=== PATIENT | male | born 1980 | race African-American/Black ===

== ENCOUNTER 2017-01-27 15:07 | Emergency (ER) | payer BC ==
[2017-01-27 15:37] VITALS: BP 134/80
[2017-01-27] MEDS ORDERED: diphenhydrAMINE 50 MG/ML SDV IM ONE (16:31)
[2017-01-27] MEDS ORDERED: Metoclopramide 10 MG/2 ML SDV IM ONE (16:31)
[2017-01-27] MEDS ORDERED: Ketorolac 60 MG/2 ML SDV IM ONE (16:31)
--- NOTE | 2017-01-27 16:32 | EDM.PDOC ---
ED HPI GENERAL MEDICAL PROBLEM - General Chief Complaint: Headache Stated Complaint: Headache Time Seen by Provider: 01/27/17 16:10 Source of Information: Reports: Patient, Old Records, RN Notes Reviewed History Limitations: Reports: No Limitations - History of Present Illness INITIAL COMMENTS - FREE TEXT/NARRATIVE: 36 year old male presents to the ED today with 2 week history of intermittent frontal headache, worse on the left. He has associated light sensitivity, sinus pressure, and post-nasal drip. He has a history of headaches that seem to be seasonal. He had a normal CT in June of 2016. He also has seasonal allergy symptoms. He is not taking anything for his allergies. He has tried taking Excedrin for the headache with minimal relief. He denies weakness in extremities , difficulty walking, slurred speech, neck pain, neck stiffness, nausea, vomiting, cough, shortness of breath, chest pain. Anterior Headache Pain Score (Numeric/FACES): 4 - Related Data Allergies Allergy/AdvReac Type Severity Reaction Status Date / Time No Known Allergies Allergy Verified 01/27/17 15:33 Home Meds: Home Meds Methylphenidate HCl [Methylphenidate ER] 18 mg PO DAILY 07/18/16 [History] Ondansetron HCl [Zofran] 4 mg PO ASDIRECTED 07/18/16 [History] predniSONE [Prednisone] 10 mg PO DAILY #68 tablet 07/21/16 [Rx] Past Medical History - Past Health History Medical/Surgical History: Denies Medical/Surgical History HEENT History: Reports: Impaired Vision Cardiovascular History: Reports: Hypertension Respiratory History: Reports: Sleep Apnea Other Respiratory History: c-pap Neurological History: Reports: Migraines Psychiatric History: Reports: ADD, Anxiety, Autism, Depression - Past Surgical History HEENT Surgical History: Reports: None Cardiovascular Surgical History: Reports: None Social & Family History - Family History Family Medical History: Noncontributory - Tobacco Use Smoking Status *Q: Never Smoker Second Hand Smoke Exposure: No - Caffeine Use Caffeine Use: Reports: Coffee, Soda, Tea - Recreational Drug Use Recreational Drug Use: No ED ROS GENERAL - Review of Systems Review Of Systems: See Below Constitutional: Reports: No Symptoms. Denies: Fever, Chills, Diaphoresis HEENT: Reports: Rhinitis, Sinus Problem (congestion and snius pressure), Other ( post-nasal drip). Denies: Ear Pain, Throat Pain, Vertigo, Vision Change Respiratory: Reports: No Symptoms. Denies: Cough Cardiovascular: Reports: No Symptoms. Denies: Chest Pain GI/Abdominal: Reports: No Symptoms. Denies: Abdominal Pain, Nausea, Vomiting Neurological: Reports: Headache. Denies: Confusion, Dizziness, Numbness, Tingling, Weakness - Physical Exam Exam: See Below Exam Limited By: No Limitations General Appearance: Alert, WD/WN, No Apparent Distress Eye Exam: Bilateral Eye: EOMI, Normal Inspection, PERRL Ears: Normal External Exam, Normal Canal, Hearing Grossly Normal, Normal TMs Nose: Normal Inspection, Normal Mucosa Throat/Mouth: Normal Inspection, Normal Oropharynx, No Airway Compromise Head Exam: Atraumatic, Normocephalic Neck: Normal Inspection, Supple, Non-Tender, Full Range of Motion Respiratory/Chest: No Respiratory Distress, Lungs Clear, Normal Breath Sounds Cardiovascular: Regular Rate, Rhythm Neuro Exam (Abbreviated): Alert, Oriented, Normal Cognition, No Motor/Sensory Deficits, Other (cerebellar testing intact ) Skin Exam: Warm, Dry, Intact Course - Vital Signs Last Recorded V/S: Last Vital Signs Temp 96.8 F 01/27/17 15:33 Pulse 78 01/27/17 18:24 Resp 16 01/27/17 18:24 BP 134/80 01/27/17 15:33 Pulse Ox 100 01/27/17 18:24 - Orders/Labs/Meds Meds: Medications Discontinued Medications Generic Name Dose Route Start Last Admin Trade Name Joseq PRN Reason Stop Dose Admin Diphenhydramine HCl 50 mg 01/27/17 16:31 01/27/17 16:43 Benadryl IM 01/27/17 16:32 50 mg ONETIME ONE Administration Ketorolac Tromethamine 60 mg 01/27/17 16:31 01/27/17 16:44 Toradol IM 01/27/17 16:32 60 mg ONETIME ONE Administration Metoclopramide HCl 10 mg 01/27/17 16:31 01/27/17 16:41 Reglan IM 01/27/17 16:32 10 mg ONETIME ONE Administration - Re-Assessments/Exams Free Text/Narrative Re-Assessment/Exam: Symptoms treated with Toradol, Benadryl and Reglan. We discussed dexamethasone since that's worked for him in the past and there is suggestion of cluster headaches in his history. He would like to start with the Toradol, Benadryl and Reglan first. We discussed his allergy symptoms. He goes months without headaches and his headaches seem to be associated with his allergy season. I see he was here in January of last year with the same complaints, indicating cyclic type etiology. He had complete resolution of symptoms with initial treatment. No dexamethasone was needed. He requested discharge. He was educated on allergy symptom treatment including nedi-pot and encouraged to start flonase nasal spray. Discharge instructions as documented. Departure - Departure Time of Disposition: 17:37 Disposition: Home, Self-Care 01 Condition: good Clinical Impression: Sinus headache Allergic rhinitis Qualifiers: Qualified Code(s): J30.9 - Allergic rhinitis, unspecified - Discharge Information Instructions: Sinus Headache, Allergic Rhinitis Referrals: Gideon Kennedy PA-C [Primary Care Provider] - Forms: ED Department Discharge Additional Instructions: Continue nedi-pot Start Flonase 1 spray to each nostril twice a day. Take this consistently for 2- 3 weeks in order to see if it helps Continue Excedrin and/or Ibuprofen as needed for headache You can also take Benadryl at home Return to ER as needed
== END 2017-01-27 17:50 | disposition home or self-care (01) ==
LOC: JD.ED 15:07
DX: R51 Headache (principal); I10 Essential (primary) hypertension; Z79.899 Other long term (current) drug therapy
CPT/HCPCS: 96372; 99284; J1200; J1885; J2765; 99283

== ENCOUNTER 2019-01-12 11:45 | Emergency (ER) | payer BC ==
[2019-01-12 12:03] VITALS: BP 132/95
[2019-01-12] MEDS ORDERED: Sodium Chloride 0.9% 10 ML Syringe FLUSH PRN (12:05)
[2019-01-12] MEDS ORDERED: Ondansetron 4 MG/2 ML SDV IVPUSH ONE (12:06)
[2019-01-12] MEDS ORDERED: HYDROmorphone 0.5 MG/0.5 ML Syringe IVPUSH ONE (12:06)
--- NOTE | 2019-01-12 13:45 | EDM.PDOC ---
ED HPI GENERAL MEDICAL PROBLEM - General Chief Complaint: Cardiovascular Problem Stated Complaint: HIGH BLOOD PRESSURE/ NAUSEA SENT BY [facility] Time Seen by Provider: 01/12/19 11:54 Source of Information: Reports: Patient History Limitations: Reports: No Limitations - History of Present Illness INITIAL COMMENTS - FREE TEXT/NARRATIVE: The patient presents with chest pain and abdominal pain. He also has some nausea but no vomiting. This has been going on for a few days. He was sent over because of his blood pressure but his blood pressure looks good now. He says the abdominal pain and nausea has been an ongoing problem for about 3 years. He went to a GI specialist to be worked up for Chron's and ulcerative colitis but nothing was found. The pain in the chest feels like heartburn. He also has trouble with diarrhea and constipation at times. He has no history of hypertension or heart disease. Onset: Gradual Duration: Day(s): Location: Reports: Chest, Abdomen Quality: Reports: Burning Severity: Mild Improves with: Reports: None Worsens with: Reports: None Associated Symptoms: Reports: Chest Pain. Denies: Cough, Fever/Chills, Headaches, Nausea/Vomiting, Shortness of Breath Chest Pain Score (Numeric/FACES): 8 - Related Data Allergies Allergy/AdvReac Type Severity Reaction Status Date / Time No Known Allergies Allergy Verified 01/12/19 11:56 Home Meds: Home Meds Methylphenidate HCl [Methylphenidate ER] 18 mg PO DAILY 07/18/16 [History] Ondansetron [Zofran ODT] 4 mg PO Q6H PRN #20 tab.dis 01/12/19 [Rx] Past Medical History - Past Health History Medical/Surgical History: Denies Medical/Surgical History HEENT History: Reports: Impaired Vision Cardiovascular History: Reports: Hypertension Respiratory History: Reports: Sleep Apnea Other Respiratory History: c-pap Gastrointestinal History: Reports: Chronic Constipation, Chronic Diarrhea, GERD Neurological History: Reports: Migraines Psychiatric History: Reports: ADD, Anxiety, Autism, Depression - Past Surgical History HEENT Surgical History: Reports: None Cardiovascular Surgical History: Reports: None Social & Family History - Family History Family Medical History: Noncontributory - Tobacco Use Smoking Status *Q: Light Tobacco Smoker Years of Tobacco use: 10 Packs/Tins Daily: 0.3 Tobacco Use Comment: Smokes when he drinks - Caffeine Use Caffeine Use: Reports: Coffee Other Caffeine Use: Energy pills - Recreational Drug Use Recreational Drug Use: No ED ROS GENERAL - Review of Systems Review Of Systems: See Below Constitutional: Reports: No Symptoms HEENT: Reports: No Symptoms Respiratory: Reports: No Symptoms Cardiovascular: Reports: Chest Pain Endocrine: Reports: No Symptoms GI/Abdominal: Reports: Abdominal Pain : Reports: No Symptoms Musculoskeletal: Reports: No Symptoms ED EXAM, GENERAL - Physical Exam Exam: See Below Exam Limited By: No Limitations General Appearance: Alert, No Apparent Distress Ears: Normal External Exam Nose: Normal Inspection Head: Atraumatic, Normocephalic Neck: Normal Inspection Respiratory/Chest: No Respiratory Distress, Lungs Clear, Normal Breath Sounds Cardiovascular: Regular Rate, Rhythm, No Edema, No Murmur GI/Abdominal: Soft, Non-Tender, No Organomegaly, No Mass Back Exam: Normal Inspection Extremities: Normal Inspection EKG INTERPRETATION EKG Date: 01/12/19 Time: 12:15 Rhythm: NSR Rate (Beats/Min): 67 [place]: Normal P-Wave: Present QRS: Normal ST-T: Elevated (Normal early repol) QT: Normal Course - Vital Signs Last Recorded V/S: Last Vital Signs Temp 97.0 F 01/12/19 11:58 Pulse 79 01/12/19 11:58 Resp 18 01/12/19 11:58 BP 132/95 H 01/12/19 11:58 Pulse Ox 100 01/12/19 11:58 - Orders/Labs/Meds Orders: Active Orders 24 hr Category Date Time Status Cardiac Monitoring [RC] . DIRECTED Care 01/12/19 12:05 Active EKG Documentation Completion [RC] STAT Care 01/12/19 12:06 Active Peripheral IV Care [RC] . DIRECTED Care 01/12/19 12:06 Active Chest 2V [CR] Stat Exams 01/12/19 12:06 Taken Sodium Chloride 0.9% [Saline Flush] Med 01/12/19 12:05 Active 10 ml FLUSH ASDIRECTED PRN Peripheral IV Insertion Adult [OM.PC] Stat Oth 01/12/19 12:05 Ordered Medication Orders Sodium Chloride (Saline Flush) 10 ml FLUSH ASDIRECTED PRN PRN Reason: Keep Vein Open Labs: Laboratory Tests 01/12/19 01/12/19 Range/Units 12:25 12:25 WBC 4.51 (4.23-9.07) K/mm3 RBC 5.24 (4.63-6.08) M/mm3 Hgb 15.6 (13.7-17.5) gm/L Hct 47.3 (40.1-51.0) % MCV 90.3 (79.0-92.2) fl MCH 29.8 (25.7-32.2) pg MCHC 33.0 (32.2-35.5) g/dl RDW Std Deviation 41.7 (35.1-43.9) fL Plt Count 226 (163-337) K/mm3 MPV 9.4 (9.4-12.3) fl Neut % (Auto) 55.7 (34.0-67.9) % Lymph % (Auto) 31.7 (21.8-53.1) % [place] % (Auto) 9.8 (5.3-12.2) % Eos % (Auto) 2.2 (0.8-7.0) Baso % (Auto) 0.4 (0.1-1.2) % Neut # (Auto) 2.51 (1.78-5.38) K/mm3 Lymph # (Auto) 1.43 (1.32-3.57) K/mm3 [place] # (Auto) 0.44 (0.30-0.82) K/mm3 Eos # (Auto) 0.10 (0.04-0.54) K/mm3 Baso # (Auto) 0.02 (0.01-0.08) K/mm3 Sodium 138 (136-145) mEq/L Potassium 4.1 (3.5-5.1) mEq/L Chloride 105 (98-107) mEq/L Carbon Dioxide 25 (21-32) mEq/L Anion Gap 12.1 (5-15) BUN 16 (7-18) mg/dL Creatinine 1.2 (0.7-1.3) mg/dL Est Cr Clr Drug Dosing 93.41 mL/min Estimated GFR (MDRD) > 60 (>60) mL/min BUN/Creatinine Ratio 13.3 L (14-18) Glucose 95 (74-106) mg/dL Calcium 9.0 (8.5-10.1) mg/dL Total Bilirubin 0.3 (0.2-1.0) mg/dL AST 32 (15-37) U/L ALT 72 H (16-63) U/L Alkaline Phosphatase 83 (46-116) U/L Troponin I < 0.017 (0.00-0.056) ng/mL Total Protein 7.1 (6.4-8.2) g/dl Albumin 3.5 (3.4-5.0) g/dl Globulin 3.6 gm/dL Albumin/Globulin Ratio 1.0 (1-2) Meds: Medications Generic Name Dose Route Start Last Admin Trade Name Freq PRN Reason Stop Dose Admin Sodium Chloride 10 ml 01/12/19 12:05 Saline Flush FLUSH ASDIRECTED PRN Keep Vein Open Discontinued Medications Generic Name Dose Route Start Last Admin Trade Name Freq PRN Reason Stop Dose Admin Hydromorphone HCl 0.5 mg 01/12/19 12:06 Dilaudid IVPUSH 01/12/19 12:07 ONETIME ONE Ondansetron HCl 4 mg 01/12/19 12:06 Zofran IVPUSH 01/12/19 12:07 ONETIME ONE - Re-Assessments/Exams Free Text/Narrative Re-Assessment/Exam: 01/12/19 13:48 I ordered an IV saline lock, zofran 4mg IV, dilaudid 0.5mg IV, EKG, CXR and labs. His EKG shows a NSR with no acute changes. His CXR looks good. 01/12/19 13:49 His CBC and CMP look good. His troponin is negative. He feels better. I will discharge him home with some zofran. Departure - Departure Time of Disposition: 13:55 Disposition: Home, Self-Care 01 Condition: Good Clinical Impression: Nausea, Reflux esophagitis Prescriptions: Ondansetron [Zofran ODT] 4 mg PO Q6H PRN #20 tab.dis PRN Reason: Nausea\vomiting Referrals: Fan Sidhu MD [Primary Care Provider] - 1 Week Additional Instructions: Take the zofran 1 pill every 6 hours as needed for nausea and vomiting. Take pepcid daily for 5 days. Please return if you are worse. - My Orders Last 24 Hours: My Active Orders 01/12/19 12:05 Cardiac Monitoring [RC] . DIRECTED Sodium Chloride 0.9% [Saline Flush] 10 ml FLUSH ASDIRECTED PRN Peripheral IV Insertion Adult [OM.PC] Stat 01/12/19 12:06 EKG Documentation Completion [RC] STAT Peripheral IV Care [RC] . DIRECTED Chest 2V [CR] Stat - Assessment/Plan Last 24 Hours: My Active Orders 01/12/19 12:05 Cardiac Monitoring [RC] . DIRECTED Sodium Chloride 0.9% [Saline Flush] 10 ml FLUSH ASDIRECTED PRN Peripheral IV Insertion Adult [OM.PC] Stat 01/12/19 12:06 EKG Documentation Completion [RC] STAT Peripheral IV Care [RC] . DIRECTED Chest 2V [CR] Stat
--- NOTE | 2019-01-12 14:46 | CR ---
Chest: Two views of chest are obtained. Comparison: No prior chest imaging. Heart size and mediastinum are normal. Lungs are clear. Bony structures show minimal scoliosis within the spine. Impression: 1. Nothing acute is seen on two-view chest x-ray. Diagnostic code #2
== END 2019-01-12 14:05 | disposition home or self-care (01) ==
LOC: JD.ED 11:45
DX: K21.0 Gastro-esophageal reflux disease with esophagitis (principal); F17.210 Nicotine dependence, cigarettes, uncomplicated; I10 Essential (primary) hypertension; F41.9 Anxiety disorder, unspecified; F32.9 Major depressive disorder, single episode, unspecified; Z79.899 Other long term (current) drug therapy
CPT/HCPCS: 36415; 71046; 71046-26; 80053; 84484; 85025; 93005; 93010; 99284; 99284-25

== ENCOUNTER 2019-06-13 13:37 | Emergency (ER) | payer BC ==
[2019-06-13] MEDS ORDERED: FLU Vacc QS2019-20(6MOS+)/PF 60 MCG/0.5 ML SYRINGE IM ONE (14:00)
[2019-06-13 14:10] VITALS: BP 136/88; PULSE 72
[2019-06-13] MEDS ORDERED: Sodium Chloride 0.9% 1,000 ML IV ONE (14:56)
[2019-06-13] MEDS ORDERED: Ketorolac 30 MG/ML SDV IVPUSH STA (14:56)
[2019-06-13] MEDS ORDERED: Metoclopramide 10 MG/2 ML SDV IVPUSH STA (14:56)
--- NOTE | 2019-06-13 14:58 | EDM.PDOC ---
ED HPI GENERAL MEDICAL PROBLEM - General Chief Complaint: Headache Stated Complaint: HEADACHE Time Seen by Provider: 06/13/19 13:59 Source of Information: Reports: Patient History Limitations: Reports: No Limitations - History of Present Illness INITIAL COMMENTS - FREE TEXT/NARRATIVE: Mr. Constantino is a pleasant 38-year-old man with a past history significant for treated hypertension and obstructive sleep apnea, and untreated allergic rhinitis, ADD, anxiety, and depression, who suffers recurrent headaches. A cursory review of prior medical records indicates that he has been seen in this ED on 5 prior occasions, and is usually successfully treated with Toradol and Reglan, with or without Benadryl. The patient states that his current headache has been present for the past 1-2 weeks. He states that it initially started on the left side, but is currently felt on the right side. It is dull in character. It waxes and wanes. It is made better with sleep. It may be worse with certain foods; he states that he was previously on a keto diet, and when he went off of it, the headache started. He is planning on resuming the keto diet. He reports associated nausea, but no emesis. He states that he has slight photophobia, but no phonophobia. No visual changes, such as blurry vision, wavy lines, or flashing lights. No neurologic symptoms, such as tingling, numbness, or weakness. He states that his current headache is the same as the headaches that he gets frequently ever since he was a teenager. He states that he has not previously been evaluated by a neurologist or headache specialist, and he has not previously been prescribed anti-migraine medications. The patient states that he has been taking Excedrin Migraine, about 2 tablets per day, which sometimes helps, sometimes does not. Further review of prior medical records indicates that the patient underwent a CT of his head without contrast on 11/04/2015, which returned unremarkable, followed by a CT of his head with contrast on 07/18/2016, which was also negative. The patient's PCP is Dr. Fan Sidhu. The patient has not received an influenza vaccine this season. Left Headache Pain Score (Numeric/FACES): 4 - Related Data Allergies Allergy/AdvReac Type Severity Reaction Status Date / Time No Known Allergies Allergy Verified 06/13/19 13:51 Home Meds: Home Meds Polyethylene Glycol 3350 [Miralax] 17 gm PO DAILY PRN 06/13/19 [History] Past Medical History HEENT History: Reports: Allergic Rhinitis (untreated), Impaired Vision Cardiovascular History: Reports: Hypertension Respiratory History: Reports: Sleep Apnea (nightly CPAP 10) Psychiatric History: Reports: ADD (untreated), Anxiety (untreated), Autism, Depression (untreated) Endocrine/Metabolic History: Reports: Obesity/BMI 30+ Social & Family History - Family History Family Medical History: Noncontributory - Tobacco Use Smoking Status *Q: Current Some Day Smoker - Caffeine Use Caffeine Use: Reports: Coffee Other Caffeine Use: Energy pills - Alcohol Use Alcohol Use History: Yes Alcohol Use Frequency: Socially - Recreational Drug Use Recreational Drug Use: Yes Drug Use in Last 12 Months: No Recreational Drug Type: Reports: Marijuana/Hashish (last smoked 2012) - Living Situation & Occupation Living situation: Reports: Single, Alone Occupation: Employed ([employer]) ED ROS GENERAL - Review of Systems Review Of Systems: ROS reveals no pertinent complaints other than HPI. Neurological: Reports: Headache (frequent/recurrent) - Physical Exam Exam: See Below Exam Limited By: No Limitations General Appearance: Alert, WD/WN, No Apparent Distress Eye Exam: Bilateral Eye: EOMI, Normal Inspection, PERRL Ears: Normal External Exam, Normal Canal, Hearing Grossly Normal, Normal TMs Nose: Normal Inspection, Normal Mucosa, No Blood Throat/Mouth: Normal Inspection, Normal Lips, Normal Teeth, Normal Gums, Normal Oropharynx, Normal Voice, No Airway Compromise Head Exam: Atraumatic, Normocephalic Neck: Normal Inspection, Supple, Non-Tender, Full Range of Motion. No: Lymphadenopathy (L), Lymphadenopathy (R) Respiratory/Chest: No Respiratory Distress, Lungs Clear, Normal Breath Sounds, No Accessory Muscle Use Cardiovascular: Normal Peripheral Pulses, Regular Rate, Rhythm, No Gallop, No JVD, No Murmur, No Rub GI/Abdominal: Normal Bowel Sounds, Soft, Non-Tender, No Organomegaly, No Distention, No Abnormal Bruit, No Mass (Male) Exam: Deferred Rectal (Males) Exam: Deferred Neuro Exam (Abbreviated): Alert, Oriented, CN II-XII Intact, Normal Cognition, No Motor/Sensory Deficits Back Exam: Normal Inspection, Full Range of Motion, NT Extremities: Normal Inspection, Normal Range of Motion, No Pedal Edema, Normal Capillary Refill Psychiatric: Normal Affect Skin Exam: Warm, Dry, Intact, Normal Color, No Rash Course - Vital Signs Last Recorded V/S: Last Vital Signs Temp 36.1 C 06/13/19 13:48 Pulse 72 06/13/19 13:48 Resp 19 06/13/19 13:48 BP 136/88 06/13/19 13:48 Pulse Ox 99 06/13/19 13:48 - Orders/Labs/Meds Meds: Medications Discontinued Medications Generic Name Dose Route Start Last Admin Trade Name Landy PRN Reason Stop Dose Admin Sodium Chloride 1,000 mls @ 999 mls/hr 06/13/19 14:56 06/13/19 15:06 Normal Saline IV 06/13/19 15:56 999 mls/hr ONETIME ONE Administration Influenza Virus Vaccine 1 each 06/13/19 13:55 Pharmacy To Dose - Influenza Vaccine IM 06/13/19 13:56 ONETIME ONE Influenza Virus Vaccine 60 mcg 06/13/19 14:00 06/13/19 14:08 Fluzone Quad [id number] Syringe IM 06/13/19 14:01 60 mcg .ONCE ONE Administration Ketorolac Tromethamine 30 mg 06/13/19 14:56 06/13/19 15:07 Toradol IVPUSH 06/13/19 14:57 30 mg ONETIME STA Administration Metoclopramide HCl 10 mg 06/13/19 14:56 06/13/19 15:11 Reglan IVPUSH 06/13/19 14:57 10 mg ONETIME STA Administration - Re-Assessments/Exams Free Text/Narrative Re-Assessment/Exam: 06/13/19 14:57 The underlying etiology of the patient's headaches is not entirely clear. They do not appear to be migrainous. Since the patient has been successfully treated with Toradol and Reglan, with or without Benadryl in the past, I have Toradol and Reglan. The patient will also be given IV fluid. Since it has been more than one year since the last CT of his head, the patient will receive a CT of his head without contrast today. Lastly, the patient will be given an influenza vaccine during his ED visit. 06/13/19 16:06 CT of the head without contrast is read by Dr. Martinez as: 1. Nothing acute is identified on noncontrast head CT exam. No change is appreciated from previous head CT study. 06/13/19 16:09 The patient states that he feels substantially better following the Toradol and Reglan. Again, the underlying cause of his headache is not clear, but I suspect that it may be a tension-type headache. I suggested that he try to see a Neurologist/headache specialist in [place] to see if a definitive diagnosis can be made. Departure - Departure Time of Disposition: 16:10 Disposition: Home, Self-Care 01 Condition: Good Clinical Impression: Headache Qualifiers: Headache type: unspecified Headache chronicity pattern: episodic headache Intractability: not intractable Qualified Code(s): R51 - Headache - Discharge Information *PRESCRIPTION DRUG MONITORING PROGRAM REVIEWED*: Not Applicable *COPY OF PRESCRIPTION DRUG MONITORING REPORT IN PATIENT CECE: Not Applicable Instructions: Migraine Headache, [id number] Referrals: Fan Sidhu MD [Primary Care Provider] - Forms: ED Department Discharge Additional Instructions: You were seen in the emergency room for a chronic/recurrent headache. Workup in the ER included a CT scan of your head, which returned unremarkable. Your headache substantially improved following IV Toradol and IV Reglan. We recommend that you stay adequately hydrated, and try to avoid pain medications such as Excedrin migraine. As discussed, the underlying cause of your headache is not clear. It is likely a tension-type headache. We recommend, however, that you follow-up with a Neurologist or headache specialist in [place] to get a definitive diagnosis as to the underlying cause of your headache. If any other problems, please do not hesitate to return to the ER.
--- NOTE | 2019-06-13 16:01 | CT ---
Head CT Technique: Multiple axial sections through the brain were obtained. Intravenous contrast was not utilized. Comparison: Prior head CT study of 07/18/16. Findings: Ventricles along with basal cisterns and sulci over the convexities appear within normal limits for the patient's age. No abnormal parenchymal densities are seen. No evidence of intracranial hemorrhage. No midline shift or mass effect is seen. Bone window settings were reviewed which shows the visualized mastoid sinuses and paranasal sinuses to appear clear. No acute calvarial abnormality is seen. Impression: 1. Nothing acute is identified on noncontrast head CT exam. No change is appreciated from previous head CT study. Diagnostic code #1
== END 2019-06-13 16:35 | disposition home or self-care (01) ==
LOC: JD.ED 13:37
DX: R51 Headache (principal); I10 Essential (primary) hypertension; E66.9 Obesity, unspecified; F17.200 Nicotine dependence, unspecified, uncomplicated; Z68.41 Body mass index [BMI] 40.0-44.9, adult
CPT/HCPCS: 70450; 90471; 90686; 96361; 96374; 96375; 99284; J1885; J2765; J7040; G0008

== ENCOUNTER 2020-04-05 12:44 | Emergency (ER) | payer BC, OTHER ==
[2020-04-05] MEDS ORDERED: Metoclopramide 10 MG/2 ML SDV IVPUSH ONE (13:05)
[2020-04-05] MEDS ORDERED: Sodium Chloride 0.9% 10 ML Syringe FLUSH PRN (13:05)
[2020-04-05] MEDS ORDERED: diphenhydrAMINE 50 MG/ML SDV IVPUSH ONE (13:05)
[2020-04-05] MEDS ORDERED: Ketorolac 30 MG/ML SDV IVPUSH ONE (13:05)
[2020-04-05] MEDS ORDERED: Sodium Chloride 0.9% 1,000 ML IV ONE (13:05)
--- NOTE | 2020-04-05 13:14 | EDM.PDOC ---
ED HPI GENERAL MEDICAL PROBLEM - General Chief Complaint: Headache Stated Complaint: MIGRAINE Time Seen by Provider: 04/05/20 12:54 Source of Information: Reports: Patient, RN Notes Reviewed History Limitations: Reports: No Limitations - History of Present Illness INITIAL COMMENTS - FREE TEXT/NARRATIVE: Patient is a 39-year-old male who presents to the ED for the evaluation of his migraine. Patient notes that he has a history of migraines. He has had this particular migraine for the last week and a half. He did go to the walk-in clinic, was given a shot of Toradol, and some nausea medications, that dissolve in your mouth. He thinks it was called Zofran. He was also given some headache medications, but cannot recall the name of this medication at this time. He states he did take the nausea medication 1 hour prior to arrival to the ER today. He notes that his headache is mostly on the left side of his head, is a dull aching in nature, he notes that the headache is worse when he wakes up in the morning and rates it at 8 or 9 out of 10, but at the current moment, he would rated at about a 6 or 7 out of 10. He states that he occasionally gets migraines every 2 to 3 years, he has been worked up by neurology in the past, and states his brain scan was "inconclusive". He is complaining of some light sensitivity mainly, but also has a little bit of sound sensitivity. Patient's primary care provider is Dr. Sidhu. He notes that he has no spots or aura that he has been experiencing. He also states he was tested for COVID on Saturday, and the results are negative. Other than the nausea, he denies any vomiting or diarrhea, no fevers or chills, cough or shortness of breath. Headache Pain Score (Numeric/FACES): 6 - Related Data Allergies Allergy/AdvReac Type Severity Reaction Status Date / Time No Known Allergies Allergy Verified 04/05/20 12:55 Home Meds: Home Meds . [Unable to Verify Home Med List] 04/05/20 [History] Past Medical History HEENT History: Reports: Allergic Rhinitis, Impaired Vision Cardiovascular History: Reports: Hypertension Respiratory History: Reports: Sleep Apnea Other Respiratory History: cpap Gastrointestinal History: Reports: Chronic Constipation, Chronic Diarrhea, GERD Neurological History: Reports: Migraines Psychiatric History: Reports: ADD, Anxiety, Autism, Depression Endocrine/Metabolic History: Reports: Obesity/BMI 30+ - Past Surgical History Musculoskeletal Surgical History: Reports: Shoulder Surgery Social & Family History - Family History Family Medical History: Noncontributory - Tobacco Use Smoking Status *Q: Never Smoker - Caffeine Use Caffeine Use: Reports: None Other Caffeine Use: Energy pills - Recreational Drug Use Recreational Drug Use: No - Living Situation & Occupation Living situation: Reports: Single, Alone Occupation: Employed ([employer]) ED ROS GENERAL - Review of Systems Review Of Systems: Comprehensive ROS is negative, except as noted in HPI. - Physical Exam Exam: See Below Exam Limited By: No Limitations General Appearance: Alert, WD/WN, No Apparent Distress Eye Exam: Bilateral Eye: EOMI, Normal Inspection, PERRL Ears: Normal External Exam Nose: Normal Inspection Throat/Mouth: Normal Inspection, Normal Lips, Normal Teeth, Normal Gums, Normal Oropharynx, Normal Voice, No Airway Compromise Head Exam: Atraumatic, Normocephalic Neck: Normal Inspection Respiratory/Chest: No Respiratory Distress, Lungs Clear, Normal Breath Sounds, No Accessory Muscle Use, Chest Non-Tender Cardiovascular: Normal Peripheral Pulses, Regular Rate, Rhythm, No Murmur Neuro Exam (Abbreviated): Alert, Oriented, Normal Cognition, No Motor/Sensory Deficits Extremities: Normal Inspection, Normal Capillary Refill Psychiatric: Normal Affect, Normal Mood Skin Exam: Warm, Dry, Intact, Normal Color, No Rash Course - Vital Signs Last Recorded V/S: Last Vital Signs Temp 96.7 F L 04/05/20 12:52 Pulse 102 H 04/05/20 12:52 Resp 18 04/05/20 12:52 BP 139/105 H 04/05/20 12:52 Pulse Ox 97 04/05/20 12:52 - Orders/Labs/Meds Orders: Active Orders 24 hr Category Date Time Status Peripheral IV Care [RC] . DIRECTED Care 04/05/20 13:05 Ordered Sodium Chloride 0.9% [Saline Flush] Med 04/05/20 13:05 Active 10 ml FLUSH ASDIRECTED PRN Peripheral IV Insertion Adult [OM.PC] Routine Oth 04/05/20 13:05 Ordered Medication Orders Sodium Chloride (Saline Flush) 10 ml FLUSH ASDIRECTED PRN PRN Reason: Keep Vein Open Last Admin: 04/05/20 13:17 Dose: 10 ml Documented by: SANTHOSH Meds: Medications Generic Name Dose Route Start Last Admin Trade Name Freq PRN Reason Stop Dose Admin Sodium Chloride 10 ml 04/05/20 13:05 04/05/20 13:17 Saline Flush FLUSH 10 ml ASDIRECTED PRN Administration Keep Vein Open Discontinued Medications Generic Name Dose Route Start Last Admin Trade Name Freq PRN Reason Stop Dose Admin Diphenhydramine HCl 25 mg 04/05/20 13:05 04/05/20 13:20 Benadryl IVPUSH 04/05/20 13:06 25 mg ONETIME ONE Administration Sodium Chloride 1,000 mls @ 999 mls/hr 04/05/20 13:05 04/05/20 13:17 Normal Saline IV 04/05/20 14:05 999 mls/hr ASDIRECTED ONE Administration Ketorolac Tromethamine 30 mg 04/05/20 13:05 04/05/20 13:18 Toradol IVPUSH 04/05/20 13:06 30 mg ONETIME ONE Administration Metoclopramide HCl 10 mg 04/05/20 13:05 04/05/20 13:17 Reglan IVPUSH 04/05/20 13:06 10 mg ONETIME ONE Administration - Re-Assessments/Exams Free Text/Narrative Re-Assessment/Exam: 04/05/20 13:13 Patient presents the ED for the evaluation of his headache. Have ordered IV to be placed with some IV fluids, 30 mg IV Toradol, 10 mg IV Reglan, 25 mg IV Benadryl for initial management. Departure - Departure Time of Disposition: 14:25 Disposition: Home, Self-Care 01 Condition: Good Clinical Impression: Migraine Qualifiers: Migraine type: without aura Status migrainosus presence: without status migrainosus Intractability: not intractable Qualified Code(s): G43.009 - Migraine without aura, not intractable, without status migrainosus - Discharge Information *PRESCRIPTION DRUG MONITORING PROGRAM REVIEWED*: No *COPY OF PRESCRIPTION DRUG MONITORING REPORT IN PATIENT CECE: No Instructions: Migraine Headache, [id number] Referrals: Fan Sidhu MD [Primary Care Provider] - Forms: ED Department Discharge Additional Instructions: You were evaluated in the ED for your headache. You were given a combination of medications and IV fluid for management. This did seem to provide you pretty good relief of your symptoms. Recommend that you go home and rest in a quiet, darkened room. Try also to keep well hydrated. Please continue to take all previous prescriptions at home as previously directed unless told otherwise by another healthcare provider. You may take the headache/nausea medications given to you by the walk in clinic as directed as well for headaches. Please return to the ED if your symptoms should change or worsen. Sepsis Event Note (ED) - Evaluation Sepsis Screening Result: No Definite Risk - Focused Exam Vital Signs: Vital Signs Temp Pulse Resp BP Pulse Ox 04/05/20 12:52 96.7 F L 102 H 18 139/105 H 97 - My Orders Last 24 Hours: My Active Orders 04/05/20 13:05 Peripheral IV Care [RC] . DIRECTED Sodium Chloride 0.9% [Saline Flush] 10 ml FLUSH ASDIRECTED PRN Peripheral IV Insertion Adult [OM.PC] Routine - Assessment/Plan Last 24 Hours: My Active Orders 04/05/20 13:05 Peripheral IV Care [RC] . DIRECTED Sodium Chloride 0.9% [Saline Flush] 10 ml FLUSH ASDIRECTED PRN Peripheral IV Insertion Adult [OM.PC] Routine
[2020-04-05 14:57] VITALS: BP 150/80; PULSE 88
== END 2020-04-05 14:57 | disposition home or self-care (01) ==
LOC: JD.ED 12:44
DX: G43.009 Migraine without aura, not intractable, without status migrainosus (principal); I10 Essential (primary) hypertension; F41.9 Anxiety disorder, unspecified; F32.9 Major depressive disorder, single episode, unspecified; E66.9 Obesity, unspecified; Z68.41 Body mass index [BMI] 40.0-44.9, adult
CPT/HCPCS: 96374; 96375; 99283; J1200; J1885; J2765; J7030

== ENCOUNTER 2020-04-06 14:53 | Emergency (ER) | payer OTHER ==
[2020-04-06 16:21] VITALS: BP 137/105; PULSE 102
[2020-04-06] MEDS ORDERED: Acetaminophen/Butalbital/Caffeine 325-50-40 MG Tab PO ONE (17:24)
--- NOTE | 2020-04-06 17:35 | EDM.PDOC ---
ED HPI GENERAL MEDICAL PROBLEM - General Chief Complaint: General Stated Complaint: HEADACHE NOT BETTER Time Seen by Provider: 04/06/20 17:24 Source of Information: Reports: Patient, RN Notes Reviewed History Limitations: Reports: No Limitations - History of Present Illness INITIAL COMMENTS - FREE TEXT/NARRATIVE: Patient is a 39-year-old male who presents to the ED D for the evaluation of an ongoing migraine, and nausea and constipation. Patient was evaluated by myself yesterday for headache, given some IV fluids and medications and this seemed to help his headache for a while, he states it did return, and he is taken 4 Excedrin migraines at home for this. He also has Zofran at home, and did take some this for the nausea. He states that "every time he gets a headache however he gets constipated and nausea." He notes that he had a very small bowel movement this morning, and a normal one yesterday. He notes that he has not really been eating much, he had a normal meal yesterday, he is afraid if he eats, that he will become more constipated. He did take milk of magnesia, MiraLAX with little relief. He is not complaining of any fever/chills, vomiting or diarrhea, cough or shortness of breath. The patient states that his migraine is typical for him, he still is light and sound sensitive. Headache Pain Score (Numeric/FACES): 6 - Related Data Allergies Allergy/AdvReac Type Severity Reaction Status Date / Time No Known Allergies Allergy Verified 04/06/20 16:21 Home Meds: Home Meds Acetaminophen/Butalbital/Caff [Fioricet 325-50-40 MG] 1 tab PO Q4HR PRN #12 tab 04/06/20 [Rx] Past Medical History HEENT History: Reports: Allergic Rhinitis, Impaired Vision Cardiovascular History: Reports: Hypertension Respiratory History: Reports: Sleep Apnea Other Respiratory History: cpap Gastrointestinal History: Reports: Chronic Constipation, Chronic Diarrhea, GERD Genitourinary History: Reports: None Neurological History: Reports: Migraines Psychiatric History: Reports: ADD, Anxiety, Autism, Depression Endocrine/Metabolic History: Reports: Obesity/BMI 30+ Hematologic History: Reports: None Immunologic History: Reports: None Oncologic (Cancer) History: Reports: None Dermatologic History: Reports: None - Infectious Disease History Infectious Disease History: Reports: None - Past Surgical History Musculoskeletal Surgical History: Reports: Shoulder Surgery Social & Family History - Family History Family Medical History: Noncontributory - Tobacco Use Smoking Status *Q: Never Smoker - Caffeine Use Caffeine Use: Reports: Coffee, Soda Other Caffeine Use: Energy pills - Recreational Drug Use Recreational Drug Use: No - Living Situation & Occupation Living situation: Reports: Single, Alone Occupation: Employed ([employer]) ED ROS GENERAL - Review of Systems Review Of Systems: Comprehensive ROS is negative, except as noted in HPI. ED EXAM, GENERAL - Physical Exam Exam: See Below Exam Limited By: No Limitations General Appearance: Alert, WD/WN, No Apparent Distress Eye Exam: Bilateral Eye: EOMI, Normal Inspection, PERRL Head: Atraumatic Neck: Normal Inspection Respiratory/Chest: No Respiratory Distress, Lungs Clear, Normal Breath Sounds, No Accessory Muscle Use, Chest Non-Tender Cardiovascular: Normal Peripheral Pulses, Regular Rate, Rhythm, No Murmur GI/Abdominal: Normal Bowel Sounds, Soft, Non-Tender, No Distention, No Mass Extremities: Normal Inspection, Normal Capillary Refill Neurological: Alert, Oriented, Normal Cognition, No Motor/Sensory Deficits Psychiatric: Normal Affect, Normal Mood Skin Exam: Warm, Dry, Intact, Normal Color, No Rash Course - Vital Signs Last Recorded V/S: Last Vital Signs Temp 97.6 F 04/06/20 16:17 Pulse 102 H 04/06/20 16:17 Resp 16 04/06/20 16:17 BP 137/105 H 04/06/20 16:17 Pulse Ox 100 04/06/20 16:17 - Orders/Labs/Meds Orders: Active Orders 24 hr Category Date Time Status KUB [Abdomen 1V Flat] [CR] Stat Exams 04/06/20 17:23 Ordered Magnesium Citrate [Citrate of Magnesia] Med 04/06/20 18:32 Once 296 ml PO ONETIME ONE Medication Orders Magnesium Citrate (Citrate Of Magnesia) 296 ml PO ONETIME ONE Stop: 04/06/20 18:33 Meds: Medications Generic Name Dose Route Start Last Admin Trade Name Freq PRN Reason Stop Dose Admin Magnesium Citrate 296 ml 04/06/20 18:32 Citrate Of Magnesia PO 04/06/20 18:33 ONETIME ONE Discontinued Medications Generic Name Dose Route Start Last Admin Trade Name Freq PRN Reason Stop Dose Admin Acetaminophen/Butalbital/Caffeine 1 tab 04/06/20 17:24 04/06/20 17:36 Fioricet 325-50-40 Mg PO 04/06/20 17:25 1 tab ONETIME ONE Administration - Re-Assessments/Exams Free Text/Narrative Re-Assessment/Exam: 04/06/20 17:36 Patient presents to the ED for his ongoing migraine, and nausea and constipation. KUB has been ordered, and we will try Fioricet for his headache at this time, and plan to send him home with some of this if it helps his headache. 04/06/20 18:34 Abdomen x-ray did show a little bit of stool throughout the colon, will send him home with a bottle of mag citrate. He notes he did get his headache with Fioricet, I will give him a few tablets to trial at home, he will need to follow-up with his primary care provider for a refill of his medication. Departure - Departure Time of Disposition: 18:41 Disposition: Home, Self-Care 01 Condition: Good Clinical Impression: Constipation Qualifiers: Constipation type: other constipation type Qualified Code(s): K59.09 - Other constipation Migraine Qualifiers: Migraine type: without aura Status migrainosus presence: without status migrainosus Intractability: not intractable Qualified Code(s): G43.009 - Migraine without aura, not intractable, without status migrainosus - Discharge Information *PRESCRIPTION DRUG MONITORING PROGRAM REVIEWED*: Yes *COPY OF PRESCRIPTION DRUG MONITORING REPORT IN PATIENT CECE: No Instructions: Recurrent Migraine Headache, [id number], Constipation, Adult, [id number] Referrals: Fan Sidhu MD [Primary Care Provider] - Forms: ED Department Discharge Additional Instructions: You were evaluated in ER today for your ongoing migraine headache, and constipation. You were given a medication called Fioricet, this did seem to help relieve your headache pretty good, you will be given a few tablets of this to trial at home. Please take 1-2 tabs every 4 hours as needed for further headaches. Do not exceed 6 doses in a 24-hour time span. You were given a bottle of magnesium citrate for your constipation, please drink one half bottle, if you do not have a rather large bowel movement in a few hours, repeat with another 1/2 bottle. If this headache medication seems to help you with your migraines, you will need to follow-up with your primary care provider for a refill of this medication. Please return to the ER at any time if your symptoms change or worsen. Sepsis Event Note (ED) - Evaluation Sepsis Screening Result: No Definite Risk - Focused Exam Vital Signs: Vital Signs Temp Pulse Resp BP Pulse Ox 04/06/20 16:17 97.6 F 102 H 16 137/105 H 100 - My Orders Last 24 Hours: My Active Orders 04/06/20 17:23 KUB [Abdomen 1V Flat] [CR] Stat 04/06/20 18:32 Magnesium Citrate [Citrate of Magnesia] 296 ml PO ONETIME ONE - Assessment/Plan Last 24 Hours: My Active Orders 04/06/20 17:23 KUB [Abdomen 1V Flat] [CR] Stat 04/06/20 18:32 Magnesium Citrate [Citrate of Magnesia] 296 ml PO ONETIME ONE
[2020-04-06] MEDS ORDERED: Magnesium Citrate Solution 296 ML Bottle PO ONE (18:32)
--- NOTE | 2020-04-06 18:38 | CR ---
Abdomen: Supine view of the abdomen was obtained. Comparison: No prior abdominal imaging. Bowel gas pattern appears normal. No abnormal calcifications or soft tissue abnormality is seen. Bony structures are within normal limits. Impression: 1. Nothing acute is seen on supine abdominal x-ray. Diagnostic code #1 This report was dictated in MDT
== END 2020-04-06 18:50 | disposition home or self-care (01) ==
LOC: JD.ED 14:53
DX: G43.009 Migraine without aura, not intractable, without status migrainosus (principal); K59.09 Other constipation; I10 Essential (primary) hypertension; E66.9 Obesity, unspecified
CPT/HCPCS: 74018; 99283; A9270

== ENCOUNTER 2020-04-08 21:02 | Emergency (ER) | payer OTHER ==
[2020-04-08] MEDS ORDERED: Ketorolac 60 MG/2 ML SDV IM ONE (21:57)
[2020-04-08] MEDS ORDERED: diphenhydrAMINE 50 MG Cap PO ONE (21:58)
[2020-04-08 22:09] VITALS: BP 126/91; PULSE 74
--- NOTE | 2020-04-08 23:21 | EDM.PDOC ---
ED HPI GENERAL MEDICAL PROBLEM - General Chief Complaint: Headache Stated Complaint: MIGRAINE Time Seen by Provider: 04/08/20 21:50 Source of Information: Reports: Patient, RN Notes Reviewed - History of Present Illness INITIAL COMMENTS - FREE TEXT/NARRATIVE: 39 yr old male comes back with Parkinson. He states this has been mostly present for about 2 weeks. Not getting much relief with excedrin. No fever or chills. No neck or back pain. No know mosquito exposure. No vomiting. Has not recently had head CT or MRI. Left Eye Pain Score (Numeric/FACES): 7 - Related Data Allergies Allergy/AdvReac Type Severity Reaction Status Date / Time No Known Allergies Allergy Verified 04/06/20 16:21 Home Meds: Home Meds Acetaminophen/Butalbital/Caff [Fioricet 325-50-40 MG] 1 tab PO Q4HR PRN #12 tab 04/06/20 [Rx] Aspirin/Acetaminophen/Caffeine [Excedrin Migraine Caplet] 1 tab PO ASDIRECTED 04/08/20 [History] SUMAtriptan [Imitrex] 25 mg PO ASDIRECTED 04/08/20 [History] Past Medical History HEENT History: Reports: Allergic Rhinitis, Impaired Vision Cardiovascular History: Reports: Hypertension Respiratory History: Reports: Sleep Apnea Other Respiratory History: cpap Gastrointestinal History: Reports: Chronic Constipation, Chronic Diarrhea, GERD Genitourinary History: Reports: None Neurological History: Reports: Migraines Psychiatric History: Reports: ADD, Anxiety, Autism, Depression Endocrine/Metabolic History: Reports: Obesity/BMI 30+ Hematologic History: Reports: None Immunologic History: Reports: None Oncologic (Cancer) History: Reports: None Dermatologic History: Reports: None - Infectious Disease History Infectious Disease History: Reports: None - Past Surgical History Musculoskeletal Surgical History: Reports: Shoulder Surgery Social & Family History - Family History Family Medical History: Noncontributory - Tobacco Use Smoking Status *Q: Never Smoker - Caffeine Use Caffeine Use: Reports: Coffee, Soda, Tea Other Caffeine Use: Energy pills - Recreational Drug Use Recreational Drug Use: No - Living Situation & Occupation Living situation: Reports: Single, Alone Occupation: Employed ([employer]) ED ROS GENERAL - Review of Systems Review Of Systems: See Below Constitutional: Denies: Fever, Chills, Weakness HEENT: Reports: No Symptoms Respiratory: Denies: Shortness of Breath, Cough Cardiovascular: Denies: Chest Pain GI/Abdominal: Denies: Abdominal Pain, Nausea, Vomiting Musculoskeletal: Denies: Neck Pain, Back Pain Skin: Denies: Rash Neurological: Reports: Dizziness. Denies: Numbness, Tingling, Trouble Speaking, Difficulty Walking, Weakness - Physical Exam Exam: See Below General Appearance: Alert, No Apparent Distress Eye Exam: Bilateral Eye: PERRL Head Exam: Atraumatic. No: Facial Swelling Neck: Supple, Non-Tender Respiratory/Chest: No Respiratory Distress, Lungs Clear, Normal Breath Sounds Cardiovascular: Regular Rate, Rhythm Rectal (Males) Exam: Perirectal Abscess Neuro Exam (Abbreviated): Alert, No Motor/Sensory Deficits, Other (finger to nose nl) Extremities: Normal Inspection, Normal Range of Motion Skin Exam: Warm, Dry Course - Vital Signs Last Recorded V/S: Last Vital Signs Temp 96.9 F 04/08/20 22:08 Pulse 74 04/08/20 22:08 Resp 18 04/08/20 22:08 BP 126/91 H 04/08/20 22:08 Pulse Ox 97 04/08/20 22:08 - Orders/Labs/Meds Meds: Medications Discontinued Medications Generic Name Dose Route Start Last Admin Trade Name Joseq PRN Reason Stop Dose Admin Diphenhydramine HCl 50 mg 04/08/20 21:58 04/08/20 22:04 Benadryl PO 04/08/20 21:59 50 mg ONETIME ONE Administration Ketorolac Tromethamine 60 mg 04/08/20 21:57 04/08/20 22:04 Toradol IM 04/08/20 21:58 60 mg ONETIME ONE Administration - Re-Assessments/Exams Free Text/Narrative Re-Assessment/Exam: 04/09/20 14:55 Because this is about the 3rd ED visit in a week did order head CT which was nl. Did give benadryl PO and torodol IM with some relief. Departure - Departure Time of Disposition: 23:20 Disposition: Home, Self-Care 01 Condition: Fair Clinical Impression: Headache Qualifiers: Headache type: unspecified Headache chronicity pattern: acute headache Intractability: not intractable Qualified Code(s): R51 - Headache - Discharge Information Instructions: General Headache Without Cause Referrals: Fan Sidhu MD [Primary Care Provider] - Forms: ED Department Discharge Additional Instructions: The head Ct done tonight is normal. Continue current meds, alternate ice and heat as needed. See Dr Sidhu Saturday as planned. Sepsis Event Note (ED) - Evaluation Sepsis Screening Result: No Definite Risk
--- NOTE | 2020-04-09 10:29 | CT ---
Head CT Technique: Multiple axial sections through the brain were obtained. Intravenous contrast was not utilized. Comparison: Prior head CT study of 06/13/19. Findings: Ventricles along with basal cisterns and sulci over convexities are within normal limits for the patient's age. No abnormal parenchymal densities are seen. No evidence of intracranial hemorrhage. No midline shift or mass effect is seen. Bone window settings were reviewed. No acute calvarial finding is seen. Visualized mastoid sinuses and visualized paranasal sinuses show nothing acute. Impression: 1. Nothing acute is seen on noncontrast head CT study. 2. No change from previous exam is seen. Diagnostic code #1 Agree with preliminary report issued by [facility] ([facility] preliminary report dictated on 04/08/20, 11:35 PM Central Daylight Time) Study was dictated in MDT
== END 2020-04-08 23:28 | disposition home or self-care (01) ==
LOC: JD.ED 21:02
DX: R51 Headache (principal); I10 Essential (primary) hypertension; F84.0 Autistic disorder; E66.9 Obesity, unspecified; Z68.41 Body mass index [BMI] 40.0-44.9, adult; Z79.82 Long term (current) use of aspirin
CPT/HCPCS: 70450; 96372; 99284; A9270; J1885; 99282

== ENCOUNTER 2020-04-09 14:12 | Emergency (ER) | payer OTHER ==
[2020-04-09] MEDS ORDERED: Ketorolac 30 MG/ML SDV IVPUSH ONE (15:39)
[2020-04-09] MEDS ORDERED: Sodium Chloride 0.9% 1,000 ML IV ONE (15:39)
[2020-04-09] MEDS ORDERED: Metoclopramide 10 MG/2 ML SDV IVPUSH ONE (15:39)
[2020-04-09] MEDS ORDERED: Sodium Chloride 0.9% 10 ML Syringe FLUSH PRN (15:39)
[2020-04-09] MEDS ORDERED: Dexamethasone 10 MG/ML SDV IVPUSH ONE (15:39)
[2020-04-09] MEDS ORDERED: diphenhydrAMINE 50 MG/ML SDV IVPUSH ONE (15:39)
[2020-04-09 15:47] VITALS: BP 140/100; PULSE 67
--- NOTE | 2020-04-09 16:06 | EDM.PDOC ---
ED HPI GENERAL MEDICAL PROBLEM - General Chief Complaint: Headache Stated Complaint: HEADACHE Time Seen by Provider: 04/09/20 15:38 Source of Information: Reports: Patient, Old Records, RN Notes Reviewed History Limitations: Reports: No Limitations - History of Present Illness INITIAL COMMENTS - FREE TEXT/NARRATIVE: Patient is a 39 year old male who presents to the ED for his on going headache. Patient notes that he gets headaches like this roughly every 2 to 4 years. Patient has been seen in this ER multiple times by myself and Dr. Pitts, he most recently had a head CT done last night, which was negative for any acute findings. Patient states that his headache is located on the left side of his head, behind his left eye. He notes that he did get nauseated so bad that he did vomit 2-3 times today. Patient states this is become more intense. He states that he did try the Fioricet that I had given him on a previous visit, states this did not help much. He does have an appoint with Dr. Sidhu on Saturday for further evaluation. He further denies any fever/chills, cough/shortness of breath, or any other worsening sick-like symptoms. 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 (see below) Other Treatments SOFTWARE LICENSING EXECUTIVE: fiorcet Headache Pain Score (Numeric/FACES): 8 - Related Data Allergies Allergy/AdvReac Type Severity Reaction Status Date / Time No Known Allergies Allergy Verified 04/06/20 16:21 Home Meds: Home Meds Acetaminophen/Butalbital/Caff [Fioricet 325-50-40 MG] 1 tab PO Q4HR PRN #12 tab 04/06/20 [Rx] Aspirin/Acetaminophen/Caffeine [Excedrin Migraine Caplet] 1 tab PO ASDIRECTED 04/08/20 [History] SUMAtriptan [Imitrex] 25 mg PO ASDIRECTED 04/08/20 [History] Past Medical History HEENT History: Reports: Allergic Rhinitis, Impaired Vision Cardiovascular History: Reports: Hypertension Respiratory History: Reports: Sleep Apnea Other Respiratory History: cpap Gastrointestinal History: Reports: Chronic Constipation, Chronic Diarrhea, GERD Genitourinary History: Reports: None Neurological History: Reports: Migraines Psychiatric History: Reports: ADD, Anxiety, Autism, Depression Endocrine/Metabolic History: Reports: Obesity/BMI 30+ Hematologic History: Reports: None Immunologic History: Reports: None Oncologic (Cancer) History: Reports: None Dermatologic History: Reports: None - Infectious Disease History Infectious Disease History: Reports: None - Past Surgical History Musculoskeletal Surgical History: Reports: Shoulder Surgery Social & Family History - Family History Family Medical History: Noncontributory - Tobacco Use Smoking Status *Q: Never Smoker - Caffeine Use Caffeine Use: Reports: Coffee, Soda, Tea Other Caffeine Use: Energy pills - Recreational Drug Use Recreational Drug Use: No - Living Situation & Occupation Living situation: Reports: Single, Alone Occupation: Employed ([employer]) ED ROS GENERAL - Review of Systems Review Of Systems: Comprehensive ROS is negative, except as noted in HPI. - Physical Exam Exam: See Below Exam Limited By: No Limitations General Appearance: Alert, WD/WN, No Apparent Distress Eye Exam: Bilateral Eye: EOMI, Normal Inspection, PERRL Ears: Normal External Exam Nose: Normal Inspection Throat/Mouth: Normal Inspection, Normal Lips, Normal Teeth, Normal Gums, Normal Oropharynx, Normal Voice, No Airway Compromise Head Exam: Atraumatic, Normocephalic Neck: Normal Inspection Respiratory/Chest: No Respiratory Distress, Lungs Clear, Normal Breath Sounds, No Accessory Muscle Use, Chest Non-Tender Cardiovascular: Normal Peripheral Pulses, Regular Rate, Rhythm, No Murmur GI/Abdominal: Normal Bowel Sounds, Soft, Non-Tender, No Distention, No Mass Neuro Exam (Abbreviated): Alert, Oriented, Normal Cognition, No Motor/Sensory Deficits Extremities: Normal Inspection, Normal Capillary Refill Psychiatric: Normal Affect, Normal Mood Skin Exam: Warm, Dry, Intact, Normal Color, No Rash Course - Vital Signs Last Recorded V/S: Last Vital Signs Temp 97.1 F 04/09/20 15:43 Pulse 67 04/09/20 15:43 Resp 20 04/09/20 15:43 BP 140/100 H 04/09/20 15:43 Pulse Ox 97 04/09/20 15:43 - Orders/Labs/Meds Orders: Active Orders 24 hr Category Date Time Status Peripheral IV Care [RC] . DIRECTED Care 04/09/20 15:39 Active Sodium Chloride 0.9% [Saline Flush] Med 04/09/20 15:39 Active 10 ml FLUSH ASDIRECTED PRN Peripheral IV Insertion Adult [OM.PC] Routine Oth 04/09/20 15:39 Ordered Medication Orders Sodium Chloride (Saline Flush) 10 ml FLUSH ASDIRECTED PRN PRN Reason: Keep Vein Open Last Admin: 04/09/20 15:57 Dose: 10 ml Documented by: DEV Labs: Laboratory Tests 04/09/20 04/09/20 04/09/20 Range/Units 15:55 15:55 15:55 WBC 4.28 (4.23-9.07) K/mm3 RBC 5.81 (4.63-6.08) M/mm3 Hgb 16.9 (13.7-17.5) gm/dl Hct 52.1 H (40.1-51.0) % MCV 89.7 (79.0-92.2) fl MCH 29.1 (25.7-32.2) pg MCHC 32.4 (32.2-35.5) g/dl RDW Std Deviation 42.6 (35.1-43.9) fL Plt Count 238 (163-337) K/mm3 MPV 9.8 (9.4-12.3) fl Neut % (Auto) 50.7 (34.0-67.9) % Lymph % (Auto) 32.5 (21.8-53.1) % [place] % (Auto) 12.1 (5.3-12.2) % Eos % (Auto) 3.5 (0.8-7.0) Baso % (Auto) 0.7 (0.1-1.2) % Neut # (Auto) 2.17 (1.78-5.38) K/mm3 Lymph # (Auto) 1.39 (1.32-3.57) K/mm3 [place] # (Auto) 0.52 (0.30-0.82) K/mm3 Eos # (Auto) 0.15 (0.04-0.54) K/mm3 Baso # (Auto) 0.03 (0.01-0.08) K/mm3 ESR 2 (0-15) mm/hr Sodium 137 (136-145) mEq/L Potassium 4.0 (3.5-5.1) mEq/L Chloride 102 (98-107) mEq/L Carbon Dioxide 25 (21-32) mEq/L Anion Gap 14.0 (5-15) BUN 15 (7-18) mg/dL Creatinine 1.7 H (0.7-1.3) mg/dL Est Cr Clr Drug Dosing 65.30 mL/min Estimated GFR (MDRD) 55 (>60) mL/min BUN/Creatinine Ratio 8.8 L (14-18) Glucose 84 (74-106) mg/dL Calcium 8.8 (8.5-10.1) mg/dL Magnesium 2.2 (1.8-2.4) mg/dl Total Bilirubin 0.3 (0.2-1.0) mg/dL AST 26 (15-37) U/L ALT 89 H (16-63) U/L Alkaline Phosphatase 81 (46-116) U/L C-Reactive Protein 0.2 (<1.0) mg/dL Total Protein 8.1 (6.4-8.2) g/dl Albumin 3.8 (3.4-5.0) g/dl Globulin 4.3 gm/dL Albumin/Globulin Ratio 0.9 L (1-2) Meds: Medications Generic Name Dose Route Start Last Admin Trade Name Freq PRN Reason Stop Dose Admin Sodium Chloride 10 ml 04/09/20 15:39 04/09/20 15:57 Saline Flush FLUSH 10 ml ASDIRECTED PRN Administration Keep Vein Open Discontinued Medications Generic Name Dose Route Start Last Admin Trade Name Freq PRN Reason Stop Dose Admin Dexamethasone 10 mg 04/09/20 15:39 04/09/20 15:53 Dexamethasone IVPUSH 04/09/20 15:40 10 mg ONETIME ONE Administration Diphenhydramine HCl 25 mg 04/09/20 15:39 04/09/20 15:56 Benadryl IVPUSH 04/09/20 15:40 25 mg ONETIME ONE Administration Sodium Chloride 1,000 mls @ 999 mls/hr 04/09/20 15:39 04/09/20 15:53 Normal Saline IV 04/09/20 16:39 999 mls/hr ASDIRECTED ONE Administration Ketorolac Tromethamine 30 mg 04/09/20 15:39 04/09/20 15:54 Toradol IVPUSH 04/09/20 15:40 30 mg ONETIME ONE Administration Metoclopramide HCl 10 mg 04/09/20 15:39 04/09/20 15:55 Reglan IVPUSH 04/09/20 15:40 10 mg ONETIME ONE Administration - Re-Assessments/Exams Free Text/Narrative Re-Assessment/Exam: 04/09/20 16:06 Patient presents to the ED for the evaluation of his ongoing headache. Will repeat IV fluids, Toradol Benadryl and Reglan, and give 10 mg IV dexamethasone as well for further management. Basic labs to be obtained, CBC, CMP, magnesium, CRP and sed rate as well. Departure - Departure Time of Disposition: 17:53 Disposition: Home, Self-Care 01 Condition: Good Clinical Impression: Migraine Qualifiers: Migraine type: without aura Status migrainosus presence: without status migrainosus Intractability: not intractable Qualified Code(s): G43.009 - Migraine without aura, not intractable, without status migrainosus - Discharge Information *PRESCRIPTION DRUG MONITORING PROGRAM REVIEWED*: No *COPY OF PRESCRIPTION DRUG MONITORING REPORT IN PATIENT CECE: No Instructions: Recurrent Migraine Headache, [id number] Referrals: Fan Sidhu MD [Primary Care Provider] - Forms: ED Department Discharge Additional Instructions: You were evaluated in the ED for your headache. You were given a combination of medications and IV fluid for management. This did seem to provide you pretty good relief of your symptoms. Recommend that you go home and rest in a quiet, darkened room. Try also to keep well hydrated. Laboratory evaluation was done at today's visit, these demonstrate no focal abnormalities. Please return to the ED if your symptoms should change or worsen. Sepsis Event Note (ED) - Evaluation Sepsis Screening Result: No Definite Risk - Focused Exam Vital Signs: Vital Signs Temp Pulse Resp BP Pulse Ox 04/09/20 15:43 97.1 F 67 20 140/100 H 97 - My Orders Last 24 Hours: My Active Orders 04/09/20 15:39 Peripheral IV Care [RC] . DIRECTED Sodium Chloride 0.9% [Saline Flush] 10 ml FLUSH ASDIRECTED PRN Peripheral IV Insertion Adult [OM.PC] Routine - Assessment/Plan Last 24 Hours: My Active Orders 04/09/20 15:39 Peripheral IV Care [RC] . DIRECTED Sodium Chloride 0.9% [Saline Flush] 10 ml FLUSH ASDIRECTED PRN Peripheral IV Insertion Adult [OM.PC] Routine
== END 2020-04-09 18:10 | disposition home or self-care (01) ==
LOC: JD.ED 14:12
DX: G43.009 Migraine without aura, not intractable, without status migrainosus (principal); I10 Essential (primary) hypertension; E66.9 Obesity, unspecified; F84.0 Autistic disorder; Z68.41 Body mass index [BMI] 40.0-44.9, adult
CPT/HCPCS: 36415; 80053; 83735; 85025; 85652; 86140; 96361; 96374; 96375; 99283; J1100; J1200; J1885; J2765; J7030; 99282

== ENCOUNTER 2021-06-23 21:46 | Emergency (ER) | payer BC, OTHER ==
--- NOTE | 2021-06-23 22:36 | EDM.PDOC ---
ED HPI GENERAL MEDICAL PROBLEM - General Chief Complaint: General Stated Complaint: POSS FOOD POISONING Time Seen by Provider: 06/23/21 22:36 - History of Present Illness INITIAL COMMENTS - FREE TEXT/NARRATIVE: 40-year-old male presents the emergency room concerned about possible food poisoning. The patient has developed some nausea and vomiting and diarrhea this all started a couple hours ago. He has vomited twice. He has had a couple loose bowel movements. He wonders if this could be from eating [place] food last night. This is not associated with any fevers or chills or any significant abdominal pain he has no abdominal cramps with this. Patient denies any other complaints at this time - Related Data Allergies Allergy/AdvReac Type Severity Reaction Status Date / Time No Known Allergies Allergy Verified 04/06/20 16:21 Home Meds: Home Meds Aspirin/Acetaminophen/Caffeine [Excedrin Migraine Caplet] 1 tab PO ASDIRECTED PRN 04/08/20 [History] SUMAtriptan [Imitrex] 25 mg PO ASDIRECTED 04/08/20 [History] polyethylene glycoL 3350 [MiraLAX] 17 gm PO DAILY PRN 04/14/20 [History] Ondansetron [Ondansetron ODT] 8 mg PO Q6H PRN #8 tab.rapdis 06/24/21 [Rx] Past Medical History HEENT History: Reports: Allergic Rhinitis, Impaired Vision Cardiovascular History: Reports: Hypertension Respiratory History: Reports: Sleep Apnea Other Respiratory History: cpap Gastrointestinal History: Reports: Chronic Constipation, Chronic Diarrhea, GERD Genitourinary History: Reports: None Neurological History: Reports: Migraines Psychiatric History: Reports: ADD, Anxiety, Autism, Depression Endocrine/Metabolic History: Reports: Obesity/BMI 30+ Hematologic History: Reports: None Immunologic History: Reports: None Oncologic (Cancer) History: Reports: None Dermatologic History: Reports: None - Infectious Disease History Infectious Disease History: Reports: None - Past Surgical History Musculoskeletal Surgical History: Reports: Shoulder Surgery Social & Family History - Family History Family Medical History: No Pertinent Family History - Caffeine Use Caffeine Use: Reports: Coffee, Soda, Tea Other Caffeine Use: Energy pills - Living Situation & Occupation Living situation: Reports: Single, Alone Occupation: Employed ([employer]) ED ROS GENERAL - Review of Systems Review Of Systems: See Below Constitutional: Reports: No Symptoms Respiratory: Reports: No Symptoms Cardiovascular: Reports: No Symptoms GI/Abdominal: Reports: Diarrhea, Nausea, Vomiting. Denies: Abdominal Pain : Reports: No Symptoms Musculoskeletal: Reports: No Symptoms Skin: Reports: No Symptoms ED EXAM, GENERAL - Physical Exam Exam: See Below Exam Limited By: No Limitations General Appearance: Alert, No Apparent Distress Head: Atraumatic Neck: Normal Inspection Respiratory/Chest: No Respiratory Distress, Lungs Clear, Normal Breath Sounds Cardiovascular: Regular Rate, Rhythm, No Edema, No Murmur GI/Abdominal: Normal Bowel Sounds, Soft, Non-Tender. No: Guarding, Rigid, Rebound Back Exam: Normal Inspection, Full Range of Motion, CVA Tenderness (L) Neurological: Alert, Oriented, Normal Cognition Skin Exam: Warm, Dry, Intact Course - Vital Signs Last Recorded V/S: Last Vital Signs Temp 36.1 C 06/23/21 22:40 Pulse 80 06/23/21 22:40 Resp 20 06/23/21 22:40 BP 134/89 06/23/21 22:40 Pulse Ox 99 06/23/21 22:40 - Orders/Labs/Meds Orders: Active Orders 24 hr Category Date Time Status Chest 1V Frontal [CR] Stat Exams 06/24/21 00:01 Taken CULTURE URINE [MREF] Stat Lab 06/24/21 00:15 Stop Req Labs: Laboratory Tests 06/23/21 06/24/21 06/24/21 Range/Units 23:45 00:12 00:12 WBC 6.29 (4.23-9.07) K/mm3 RBC 5.22 (4.63-6.08) M/mm3 Hgb 15.6 (13.7-17.5) gm/dl Hct 48.7 (40.1-51.0) % MCV 93.3 H D (79.0-92.2) fl MCH 29.9 (25.7-32.2) pg MCHC 32.0 L (32.2-35.5) g/dl RDW Std Deviation 45.4 H (35.1-43.9) fL Plt Count 219 (163-337) K/mm3 MPV 9.5 (9.4-12.3) fl Neutrophils % (Manual) 70 H (40-60) % Band Neutrophils % 0 (0-10) % Lymphocytes % (Manual) 23 (20-40) % Atypical Lymphs % 0 % Monocytes % (Manual) 6 (2-10) % Eosinophils % (Manual) 1 (0.8-7.0) % Basophils % (Manual) 0 L (0.2-1.2) Platelet Estimate Adequate RBC Morph Comment Normal Sodium 137 (136-145) mEq/L Potassium 4.1 (3.5-5.1) mEq/L Chloride 104 (98-107) mEq/L Carbon Dioxide 25 (21-32) mEq/L Anion Gap 12.1 (5-15) BUN 16 (7-18) mg/dL Creatinine 1.4 H (0.7-1.3) mg/dL Est Cr Clr Drug Dosing 78.52 mL/min Estimated GFR (MDRD) > 60 (>60) mL/min BUN/Creatinine Ratio 11.4 L (14-18) Glucose 109 H (70-99) mg/dL Calcium 8.9 (8.5-10.1) mg/dL Total Bilirubin 0.4 (0.2-1.0) mg/dL AST 36 (15-37) U/L ALT 55 (16-63) U/L Alkaline Phosphatase 86 (46-116) U/L C-Reactive Protein < 0.2 (<1.0) mg/dL Total Protein 8.1 (6.4-8.2) g/dl Albumin 4.0 (3.4-5.0) g/dl Globulin 4.1 gm/dL Albumin/Globulin Ratio 1.0 (1-2) Urine Color (Yellow) Urine Appearance (Clear) Urine pH (5.0-8.0) Ur Specific [place] (1.005-1.030) Urine Protein (Negative) Urine Glucose (UA) (Negative) Urine Ketones (Negative) Urine Occult Blood (Negative) Urine Nitrite (Negative) Urine Bilirubin (Negative) Urine Urobilinogen (0.2-1.0) Ur Leukocyte Esterase (Negative) SARS-CoV-2 RNA ([place]) Negative (NEGATIVE) 06/24/21 Range/Units 00:15 WBC (4.23-9.07) K/mm3 RBC (4.63-6.08) M/mm3 Hgb (13.7-17.5) gm/dl Hct (40.1-51.0) % MCV (79.0-92.2) fl MCH (25.7-32.2) pg MCHC (32.2-35.5) g/dl RDW Std Deviation (35.1-43.9) fL Plt Count (163-337) K/mm3 MPV (9.4-12.3) fl Neutrophils % (Manual) (40-60) % Band Neutrophils % (0-10) % Lymphocytes % (Manual) (20-40) % Atypical Lymphs % % Monocytes % (Manual) (2-10) % Eosinophils % (Manual) (0.8-7.0) % Basophils % (Manual) (0.2-1.2) Platelet Estimate RBC Morph Comment Sodium (136-145) mEq/L Potassium (3.5-5.1) mEq/L Chloride (98-107) mEq/L Carbon Dioxide (21-32) mEq/L Anion Gap (5-15) BUN (7-18) mg/dL Creatinine (0.7-1.3) mg/dL Est Cr Clr Drug Dosing mL/min Estimated GFR (MDRD) (>60) mL/min BUN/Creatinine Ratio (14-18) Glucose (70-99) mg/dL Calcium (8.5-10.1) mg/dL Total Bilirubin (0.2-1.0) mg/dL AST (15-37) U/L ALT (16-63) U/L Alkaline Phosphatase (46-116) U/L C-Reactive Protein (<1.0) mg/dL Total Protein (6.4-8.2) g/dl Albumin (3.4-5.0) g/dl Globulin gm/dL Albumin/Globulin Ratio (1-2) Urine Color Yellow (Yellow) Urine Appearance Clear (Clear) Urine pH 6.0 (5.0-8.0) Ur Specific [place] 1.025 (1.005-1.030) Urine Protein Negative (Negative) Urine Glucose (UA) Negative (Negative) Urine Ketones Negative (Negative) Urine Occult Blood Negative (Negative) Urine Nitrite Negative (Negative) Urine Bilirubin Negative (Negative) Urine Urobilinogen 0.2 (0.2-1.0) Ur Leukocyte Esterase Negative (Negative) SARS-CoV-2 RNA ([facility]) (NEGATIVE) Meds: Medications Discontinued Medications Generic Name Dose Route Start Last Admin Trade Name Freq PRN Reason Stop Dose Admin Ondansetron HCl 8 mg 06/23/21 23:00 06/23/21 23:04 Ondansetron 4 Mg Tab.Dis PO 06/23/21 23:01 8 mg ONETIME ONE Administration Departure - Departure Time of Disposition: 01:19 Disposition: Home, Self-Care 01 Clinical Impression: Diarrhea - Discharge Information Referrals: Fan Sidhu MD [Primary Care Provider] - Forms: ED Department Discharge Additional Instructions: Turn to the emergency room with any questions problems or worsening symptoms. Follow-up with your regular physician early this next week for recheck. You have a prescription for Zofran if needed for nausea and vomiting. This was sent electronically to your pharmacy. Push lots of fluids. Sepsis Event Note (ED) - Focused Exam Vital Signs: Vital Signs Temp Pulse Resp BP Pulse Ox 06/23/21 22:40 36.1 C 80 20 134/89 99 - My Orders Last 24 Hours: My Active Orders 06/24/21 00:01 Chest 1V Frontal [CR] Stat 06/24/21 00:15 CULTURE URINE [MREF] Stat - Assessment/Plan Last 24 Hours: My Active Orders 06/24/21 00:01 Chest 1V Frontal [CR] Stat 06/24/21 00:15 CULTURE URINE [MREF] Stat
[2021-06-23 22:43] VITALS: BP 134/89; PULSE 80
[2021-06-23] MEDS ORDERED: Ondansetron 4 MG Tab.DIS PO ONE (23:00)
--- NOTE | 2021-06-24 07:03 | CR ---
Chest: PA view of the chest was obtained. Comparison: Prior chest x-ray of 01/12/19. Heart size and mediastinum are within normal limits. Lungs are clear with no acute parenchymal change. Right shoulder prosthesis is seen. Slight scoliosis is noted. Impression: 1. Nothing acute is seen on PA chest x-ray. Diagnostic code #1
== END 2021-06-24 01:31 | disposition home or self-care (01) ==
LOC: JD.ED 21:46
DX: R19.7 Diarrhea, unspecified (principal); I10 Essential (primary) hypertension; E66.9 Obesity, unspecified; Z68.41 Body mass index [BMI] 40.0-44.9, adult; Z79.899 Other long term (current) drug therapy
CPT/HCPCS: 36415; 71045; 80053; 81003; 85007; 85027; 86140; 87086; 87635; 99284; A9270; U0002

== ENCOUNTER 2022-02-08 18:10 | Emergency (ER) | payer BC, OTHER ==
[2022-02-08 18:44] VITALS: BP 141/103; PULSE 98
[2022-02-08] MEDS ORDERED: Sodium Chloride 0.9% 10 ML Syringe FLUSH PRN (19:45)
== END 2022-02-08 21:20 | disposition home or self-care (01) ==
LOC: JD.ED 18:10
DX: R10.31 Right lower quadrant pain (principal); I10 Essential (primary) hypertension; K21.9 Gastro-esophageal reflux disease without esophagitis; E66.9 Obesity, unspecified; Z68.42 Body mass index [BMI] 45.0-49.9, adult; Z79.82 Long term (current) use of aspirin
CPT/HCPCS: 36415; 74018; 80053; 81003; 83735; 85025; 86140; 99284; J3490

== ENCOUNTER 2023-04-27 09:06 | Emergency (ER) | payer BC ==
[2023-04-27] MEDS ORDERED: levETIRAcetam 500 MG in Sodium Chloride 0.9% 100 ML IV ONE (09:36)
[2023-04-27] MEDS ORDERED: Sodium Chloride 0.9% 10 ML Syringe FLUSH PRN (09:37)
[2023-04-27] MEDS ORDERED: ceFAZolin 1 GM in Sodium Chloride 0.9% 50 ML IV ONE (09:37)
[2023-04-27] MEDS ORDERED: Ketorolac 30 MG/ML SDV IVPUSH ONE (09:45)
[2023-04-27] MEDS ORDERED: Acetaminophen 325 MG Tab PO ONE (09:45)
[2023-04-27 09:53] LABS: BASOPHILS PERCENT AUTO 0.2 % (0.0-1.0); EOSINOPHILS ABSOLUTE AUTO 0.1 K/mm3 (0.0-0.4); EOSINOPHILS PERCENT AUTO 0.5 % (0.0-6.0); HEMATOCRIT 49.7 % (42.0-52.0); HEMOGLOBIN 16.2 gm/dl (14.0-18.0); IMMATURE GRAN ABSOLUTE AUTO 0.13 K/mm3 (0.00-0.05); IMMATURE GRAN PERCENT AUTO 1.2 % (0.0-0.4); LYMPHOCYTES ABSOLUTE AUTO 1.1 K/mm3 (1.0-4.8); LYMPHOCYTES PERCENT AUTO 9.8 % (24.0-44.0); MEAN CORPUSCULAR HEMOGLOBIN 29.9 pg (28.0-32.0); MEAN CORPUSCULAR HGB CONC 32.6 g/dl (32.0-36.0); MEAN CORPUSCULAR VOLUME 91.7 fl (83.0-99.0); MEAN PLATELET VOLUME 9.1 fl (9.4-12.4); MONOCYTES ABSOLUTE AUTO 0.6 K/mm3 (0.0-0.8); MONOCYTES PERCENT AUTO 5.3 % (0.0-8.0); NEUTROPHILS ABSOLUTE AUTO 9.2 K/mm3 (1.8-7.7); PLATELET COUNT,PLT 227 K/mm3 (150-400); RED BLOOD CELL COUNT 5.42 M/mm3 (4.52-5.90); WHITE BLOOD CELL COUNT,WBC 11.07 K/mm3 (3.9-11.3)
[2023-04-27 10:01] LABS: A/G RATIO 0.9 (1-2); ALBUMIN 3.7 g/dl (3.4-5.0); ANION GAP 17.3 (5-15); BILIRUBIN TOTAL 0.4 mg/dL (0.2-1.0); BUN/CREATININE RATIO 8.2 (14-18); CALCIUM 8.9 mg/dL (8.5-10.1); CREATININE 1.7 mg/dL (0.7-1.3); EST CRCL DRUG DOSING (CG) 63.4 mL/min; POTASSIUM,K 4.3 mEq/L (3.5-5.1)
[2023-04-27 11:31] LABS: HEMOGLOBIN A1C 6.1 %
[2023-04-27 17:17] VITALS: BP 123/79; PULSE 74
== END 2023-04-27 13:11 | disposition home or self-care (01) ==
LOC: JD.ED 09:06
DX: S01.512A Laceration without foreign body of oral cavity, initial encounter (principal); R56.9 Unspecified convulsions; E11.9 Type 2 diabetes mellitus without complications; I10 Essential (primary) hypertension; G47.30 Sleep apnea, unspecified; E66.9 Obesity, unspecified; Z68.30 Body mass index [BMI] 30.0-30.9, adult; Z79.899 Other long term (current) drug therapy
CPT/HCPCS: 36415; 80053; 83036; 85025; 96365; 96367; 96375; 99284; A9270; J0690; J1885; J1953; J3490

== ENCOUNTER 2023-05-29 10:33 | Emergency (ER) | payer BC ==
[2023-05-29 10:41] VITALS: PULSE 76
[2023-05-29] MEDS ORDERED: LORazepam 1 MG Tab PO ONE (11:29)
[2023-05-29 11:33] LABS: BASOPHILS PERCENT AUTO 0.2 % (0.0-1.0); EOSINOPHILS PERCENT AUTO 0.1 % (0.0-6.0); HEMATOCRIT 46.4 % (42.0-52.0); HEMOGLOBIN 15.2 gm/dl (14.0-18.0); IMMATURE GRAN ABSOLUTE AUTO 0.03 K/mm3 (0.00-0.05); IMMATURE GRAN PERCENT AUTO 0.3 % (0.0-0.4); LYMPHOCYTES ABSOLUTE AUTO 0.7 K/mm3 (1.0-4.8); LYMPHOCYTES PERCENT AUTO 7.4 % (24.0-44.0); MEAN CORPUSCULAR HEMOGLOBIN 29.9 pg (28.0-32.0); MEAN CORPUSCULAR HGB CONC 32.8 g/dl (32.0-36.0); MEAN CORPUSCULAR VOLUME 91.3 fl (83.0-99.0); MEAN PLATELET VOLUME 9.1 fl (9.4-12.4); MONOCYTES ABSOLUTE AUTO 0.7 K/mm3 (0.0-0.8); MONOCYTES PERCENT AUTO 8.2 % (0.0-8.0); NEUTROPHILS ABSOLUTE AUTO 7.5 K/mm3 (1.8-7.7); NEUTROPHILS PERCENT AUTO 83.8 % (41.0-71.0); PLATELET COUNT,PLT 194 K/mm3 (150-400); RED BLOOD CELL COUNT 5.08 M/mm3 (4.52-5.90); WHITE BLOOD CELL COUNT,WBC 8.93 K/mm3 (3.9-11.3)
[2023-05-29 11:58] LABS: ALBUMIN 3.9 g/dl (3.4-5.0); ANION GAP 12.7 (5-15); BILIRUBIN TOTAL 0.5 mg/dL (0.2-1.0); BUN/CREATININE RATIO 11.3 (14-18); CALCIUM 8.9 mg/dL (8.5-10.1); CREATININE 1.5 mg/dL (0.7-1.3); EST CRCL DRUG DOSING (CG) 73.98 mL/min; MAGNESIUM 2.5 mg/dL (1.8-2.4); POTASSIUM,K 3.7 mEq/L (3.5-5.1); PROTEIN TOTAL,TP 7.9 g/dl (6.4-8.2)
[2023-05-29 15:01] VITALS: BP 112/68
== END 2023-05-29 13:30 | disposition home or self-care (01) ==
LOC: JD.ED 10:33
DX: S43.402A Unspecified sprain of left shoulder joint, initial encounter (principal); R56.9 Unspecified convulsions; I10 Essential (primary) hypertension; E66.9 Obesity, unspecified; Z68.41 Body mass index [BMI] 40.0-44.9, adult; Z86.16 Personal history of COVID-19; Z79.899 Other long term (current) drug therapy; Z87.891 Personal history of nicotine dependence; Y93.E1 Activity, personal bathing and showering
CPT/HCPCS: 36415; 70450; 73030; 80053; 83735; 85025; 99284; A9270; 99283

== ENCOUNTER 2024-04-27 20:17 | Emergency (ER) | payer BC ==
[2024-04-27 21:15] LABS: BASOPHILS PERCENT AUTO 0.1 % (0.0-1.0); HEMATOCRIT 45.7 % (42.0-52.0); HEMOGLOBIN 15.2 gm/dl (14.0-18.0); IMMATURE GRAN ABSOLUTE AUTO 0.07 K/mm3 (0.00-0.05); IMMATURE GRAN PERCENT AUTO 0.6 % (0.0-0.4); LYMPHOCYTES ABSOLUTE AUTO 0.8 K/mm3 (1.0-4.8); LYMPHOCYTES PERCENT AUTO 7.2 % (24.0-44.0); MEAN CORPUSCULAR HEMOGLOBIN 29.6 pg (28.0-32.0); MEAN CORPUSCULAR HGB CONC 33.3 g/dl (32.0-36.0); MEAN CORPUSCULAR VOLUME 89.1 fl (83.0-99.0); MEAN PLATELET VOLUME 9.3 fl (9.4-12.4); MONOCYTES ABSOLUTE AUTO 0.9 K/mm3 (0.0-0.8); MONOCYTES PERCENT AUTO 8.3 % (0.0-8.0); NEUTROPHILS ABSOLUTE AUTO 9.1 K/mm3 (1.8-7.7); NEUTROPHILS PERCENT AUTO 83.8 % (41.0-71.0); PLATELET COUNT,PLT 205 K/mm3 (150-400); RED BLOOD CELL COUNT 5.13 M/mm3 (4.52-5.90); WHITE BLOOD CELL COUNT,WBC 10.89 K/mm3 (3.9-11.3)
[2024-04-27 21:35] LABS: ALANINE AMINOTRANSFERASE,ALT 97 U/L (16-63); ALBUMIN 3.6 g/dl (3.4-5.0); ALKALINE PHOSPHATASE 71 U/L (46-116); ANION GAP 11.4 (5-15); ASPARTATE AMNIOTRANSFERASE,AST 46 U/L (15-37); BILIRUBIN TOTAL 0.5 mg/dL (0.2-1.0); BLOOD UREA NITROGEN,BUN 17 mg/dL (7-18); BUN/CREATININE RATIO 8.5 (14-18); CALCIUM 8.6 mg/dL (8.5-10.1); CARBON DIOXIDE,CO2 25 mEq/L (21-32); CHLORIDE,CL 100 mEq/L (98-107); ESTIMATED GFR 42 mL/min (>60); GLUCOSE RANDOM 162 mg/dL (70-99); MAGNESIUM 3.6 mg/dL (1.8-2.4); POTASSIUM,K 3.4 mEq/L (3.5-5.1); PROTEIN TOTAL,TP 7.2 g/dl (6.4-8.2); SODIUM,NA 133 mEq/L (136-145)
[2024-04-27 21:47] LABS: APPEARANCE,URINE CLEAR (Clear); BILIRUBIN,URINE NEGATIVE (Negative); COLOR,URINE YELLOW (Yellow); GLUCOSE,URINE NEGATIVE (Negative); KETONES,URINE NEGATIVE (Negative); LEUKOCYTE ESTERASE,URINE NEGATIVE (Negative); NITRITE,URINE NEGATIVE (Negative); OCCULT BLOOD,URINE TRACE-LYSED (Negative); PROTEIN,URINE 2+ (Negative); UROBILINOGEN,URINE 0.2 (0.2-1.0)
[2024-04-27 21:59] LABS: AMORPHOUS SEDIMENT,URINE MODERATE /hpf (NOT SEEN); BACTERIA,URINE FEW /hpf (FEW); BARBITURATE SCREEN,URINE NEGATIVE (CUTOFF=200); BENZODIAZEPINES SCREEN,URINE NEGATIVE (CUTOFF=150); BUPRENORPHINE SCREEN,URINE NEGATIVE (CUTOFF=10); EPITHELIAL CELLS,URINE 0-5 /hpf (0-5); FINE GRANULAR CASTS,URINE 40-50 /lpf (0-5); METHADONE SCREEN, URINE NEGATIVE (CUT0FF=200); METHAMPHETAMINES SCREEN, URINE NEGATIVE (CUTOFF=500); MUCUS,URINE FEW /hpf (FEW); OXYCODONE SCREEN,URINE NEGATIVE (CUT0FF=100); RBC,URINE 0-5 /hpf (0-5); THC SCREEN,URINE 20 NG/ML NEGATIVE (CUTOFF=50); WBC,URINE 0-5 /hpf (0-5)
[2024-04-27 22:03] LABS: AMPHETAMINES SCREEN, URINE NEGATIVE (CUTOFF=500)
[2024-04-27] MEDS: levETIRAcetam Soln 500 MG/5 ML Cup PO ONE (22:55)
[2024-04-28 01:15] VITALS: BP 156/92; PULSE 90
== END 2024-04-28 01:15 | disposition home or self-care (01) ==
LOC: JD.ED 20:17
DX: G43.909 Migraine, unspecified, not intractable, without status migrainosus (principal); M21.822 Other specified acquired deformities of left upper arm; I10 Essential (primary) hypertension; E66.9 Obesity, unspecified; Z86.16 Personal history of COVID-19
CPT/HCPCS: 36415; 73030; 80053; 80306; 80307; 81001; 83735; 85025; 86140; 99285; A9270; 99283